=== PATIENT | male | born 1995 | race Two or more races ===

== ENCOUNTER → 2021-05-08 08:00 | Outpatient (CLI) | payer OTHER ==
[~2021-05-08 08:00] MED LIST: IMODIUM A-D2 MG PO; PERCOCET 5-3251 EACH PO
== END | disposition home or self-care (01) ==
LOC: LAB 08:00 → ADM 13:45 → AMB-ENDOS 05-15 08:53 → EDSTATUS 05-15 13:45 → AMB-ENDOS 05-15 13:45
PROVIDERS: ATTEND Colon & Rectal Surgery
DX: Z03.818 Encounter for observation for suspected exposure to other biological agents ruled out (principal); Q42.3 Congenital absence, atresia and stenosis of anus without fistula; K59.09 Other constipation

== ENCOUNTER 2021-06-03 20:24 | Inpatient (IN) | payer OTHER ==
[~2021-06-03] VITALS: Ht 167.6 cm; Wt 68.0 kg
[2021-06-13] MEDS ORDERED: PERCOCET 5-3251 EACH PO (11:57)
[2021-06-13] MEDS ORDERED: IMODIUM A-D2 MG PO (12:01)
== END 2021-06-13 13:55 | disposition home or self-care (01) | DRG 330 ==
LOC: ER 20:24 → ICU-2 06-04 12:01 → SEC-K 06-04 12:01 → SURH 06-04 12:01 → ICU-2 06-04 16:52 → SURG 06-07 09:50 → SURH 06-07 10:22
PROVIDERS: Surgery; ADMIT Internal Medicine; ATTEND Internal Medicine
PROC: 02H633Z Insertion of Infusion Device into Right Atrium, Percutaneous Approach (ICD-10-PCS; 2021-06-08)
PROC: 0D1B4Z4 Bypass Ileum to Cutaneous, Percutaneous Endoscopic Approach (ICD-10-PCS; principal; 2021-06-11 12:45)
DX: Q43.1 Hirschsprung's disease (principal); N13.30 Unspecified hydronephrosis; N17.8 Other acute kidney failure; Z20.822 Contact with and (suspected) exposure to COVID-19; E86.0 Dehydration; K59.09 Other constipation

== ENCOUNTER 2021-11-17 08:13 | Inpatient (IN) | payer OTHER ==
[~2021-11-17] VITALS: Ht 167.6 cm; Wt 63.5 kg
[2021-11-28] MEDS ORDERED: ANTI-GAS166 MG PO (12:38)
[2021-11-28] MEDS ORDERED: ULTRAM50 MG PO (12:38)
== END 2021-11-28 14:32 | disposition home or self-care (01) | DRG 330 ==
LOC: SURG 11-20 05:45 → O/R 11-20 05:45 → SURH 11-20 07:00 → SURG 11-20 16:27
PROVIDERS: ADMIT Surgery; ATTEND Surgery
PROC: 0DJD4ZZ Inspection of Lower Intestinal Tract, Percutaneous Endoscopic Approach (ICD-10-PCS; 2021-11-20)
PROC: 0DTP0ZZ Resection of Rectum, Open Approach (ICD-10-PCS; 2021-11-20)
PROC: 0D1B0Z4 Bypass Ileum to Cutaneous, Open Approach (ICD-10-PCS; 2021-11-20)
PROC: 0DNW0ZZ Release Peritoneum, Open Approach (ICD-10-PCS; 2021-11-20)
PROC: 0DQE0ZZ Repair Large Intestine, Open Approach (ICD-10-PCS; 2021-11-20)
PROC: 0DQE0ZZ Repair Large Intestine, Open Approach (ICD-10-PCS; 2021-11-20)
PROC: 0DTE0ZZ Resection of Large Intestine, Open Approach (ICD-10-PCS; principal; 2021-11-20 07:00)
DX: K59.31 Toxic megacolon (principal); K91.72 Accidental puncture and laceration of a digestive system organ or structure during other procedure; K56.51 Intestinal adhesions [bands], with partial obstruction; K59.39 Other megacolon; Z20.822 Contact with and (suspected) exposure to COVID-19